=== PATIENT | male | born 1955 | race Caucasian/White ===

== ENCOUNTER → 2016-08-28 | Outpatient (CLI) | payer MEDICARE ==
[~2016-08-28] MED LIST: AMIO200T PO; ASP325TEC PO; ASP81TEC PO; CARV12.53 PO; CARVEDILOL PO; CEFU500T5 PO; ENAL2.5T PO; ENALAPRIL PO; ERTAPENEM IV; HYDR-707 PO; HYDR-757 PO; IBP800T PO; IBUP-1773 PO; PACERONE PO; RANI300T4 PO; RANITIDINE PO; SULF-222 PO; SULF1TAB38 PO
[2016-08-28 11:42] LABS: ALANINE AMINOTRANSFERASE 23 U/L (0-55); ALBUMIN 3.4 GM/DL (3.2-4.5); ANION GAP 7 MMOL/L (5-14); ASPARTATE AMINO TRANSFERASE 24 U/L (5-34); BILIRUBIN,TOTAL 0.7 MG/DL (0.1-1.0); BLOOD UREA NITROGEN 11 MG/DL (7-18); BUN/CREATININE RATIO 14; CALCIUM 8.7 MG/DL (8.5-10.1); CARBON DIOXIDE 26 MMOL/L (21-32); CHLORIDE 107 MMOL/L (98-107); CHOLESTEROL 163 MG/DL (< 200); CREATININE SERUM 0.78 MG/DL (0.60-1.30); DIRECT LDL 109 MG/DL (1-129); GFR ESTIMATED > 60; GLUCOSE 91 MG/DL (70-105); POTASSIUM 4.1 MMOL/L (3.6-5.0); SODIUM 140 MMOL/L (135-145); TOTAL PROTEIN 6.9 GM/DL (6.4-8.2); TRIGLYCERIDES 50 MG/DL (<150); VLDL CHOLESTEROL 10 MG/DL (5-40)
[2016-08-28 12:02] LABS: THYROID STIMULATING HORMONE 0.41 UIU/ML (0.35-4.94)
--- NOTE | 2016-08-28 13:57 | Diagnostic Imaging Report ---
PA and lateral views of the chest. COMPARISON: 04/29/2014. FINDINGS: The lungs are hyperinflated. There is no focal infiltrates. There is no effusion or pneumothorax. The heart size is normal. The mediastinum and na appear unremarkable. There is a pulse generator with a single cardiac lead seen in place. IMPRESSION: COPD. Dictated by: Dictated on workstation # [id number]
== END ==
LOC: RAD 11:00
PROVIDERS: ATTEND Physician Assistant
DX: J44.9 Chronic obstructive pulmonary disease, unspecified (principal); E78.2 Mixed hyperlipidemia; I50.1 Left ventricular failure, unspecified; I10 Essential (primary) hypertension; I47.2 Ventricular tachycardia
CPT/HCPCS: 36415; 71020; 80053; 80061; 84443

== ENCOUNTER → 2017-09-30 | Outpatient (CLI) | payer MEDICARE ==
[2017-09-30 15:02] LABS: ALANINE AMINOTRANSFERASE 21 U/L (0-55); ALBUMIN 3.6 GM/DL (3.2-4.5); ALKALINE PHOSPHATASE 79 U/L (40-136); BILIRUBIN,TOTAL 0.5 MG/DL (0.1-1.0); BUN/CREATININE RATIO 14; CALCIUM 8.9 MG/DL (8.5-10.1); CARBON DIOXIDE 26 MMOL/L (21-32); CHLORIDE 103 MMOL/L (98-107); GFR ESTIMATED > 60; GLUCOSE 146 MG/DL (70-105); POTASSIUM 3.9 MMOL/L (3.6-5.0); SODIUM 137 MMOL/L (135-145); TOTAL PROTEIN 7.4 GM/DL (6.4-8.2)
--- NOTE | 2017-09-30 16:30 | Diagnostic Imaging Report ---
INDICATION: Ventricular tachycardia. TIME OF EXAM: 2:51 PM Correlation is made with prior study 08/28/2016. FINDINGS: Cardiac defibrillator is in place. The lungs are clear. No infiltrate or failure is seen. No effusion or pneumothorax is seen. There is some hyperinflation consistent with COPD. IMPRESSION: COPD. No other significant abnormality is detected. Dictated by: Dictated on workstation # [id number]
== END ==
LOC: RAD 14:15
PROVIDERS: ATTEND Internal Medicine Cardiovascular Disease
DX: I47.2 Ventricular tachycardia (principal); I10 Essential (primary) hypertension; E78.2 Mixed hyperlipidemia; J44.9 Chronic obstructive pulmonary disease, unspecified; Q00-Q99 Congenital malformations, deformations and chromosomal abnormalities
CPT/HCPCS: 36415; 71046; 80053; 84443

== ENCOUNTER → 2017-10-23 | Outpatient (CLI) | payer MEDICARE | LOC: CARD 10:15 | PROVIDERS: ATTEND Internal Medicine Cardiovascular Disease | DX: I47.2 Ventricular tachycardia (principal); I10 Essential (primary) hypertension; E78.2 Mixed hyperlipidemia; Q00-Q99 Congenital malformations, deformations and chromosomal abnormalities; I08.1 Rheumatic disorders of both mitral and tricuspid valves | CPT/HCPCS: 93306 ==

== ENCOUNTER 2018-04-28 11:22 | Emergency (ER) | payer MEDICARE, OTHER ==
[~2018-04-28] VITALS: Ht 170.2 cm; Wt 54.4 kg
--- OUTSIDE RECORDS SUMMARY | 2018-04-28 11:29 | XMS REPORT ---
Author Author RADHA JARRELL [facility] WALK IN [facility] Address [address] [place] [address] Care Team Providers Care Upper Marker Name Role Phone RADHA JARRELL Unavailable PROBLEMS Type Condition ICD9-CM Code [id number] Code Onset Dates Condition Status SNOMED Code Problem Unspecified hearing loss 389.9 Active [id number] Problem Other dyspnea and respiratory abnormalities 786.09 Active [id number] ALLERGIES No Information ENCOUNTERS Encounter Location Date Diagnosis [facility] WALK IN [facility] [id number] [place] [phone] Jan, [facility] [address] [address] Jan, [facility] WALK IN [facility] [id number] [place] [phone] Jan, Cough R05 and Bronchitis J40 [facility] [id number] [place] [address] Jul, Ringworm B35.9 [facility] [id number] [place] [address] Dec, Bronchitis J40 [facility] [id number] [place] [address] Jul, [facility] [address] [phone] Apr, [facility] [address] [address] Mar, [facility] [id number] [place] [phone] Feb, [facility] [address], [place] [phone] Jan, [facility] [address] [facility] [id number] [place] [phone] Jan, IMMUNIZATIONS No Known Immunizations SOCIAL HISTORY Never Assessed REASON FOR VISIT Refill request PLAN OF CARE VITAL SIGNS MEDICATIONS Medication Instructions Dosage Frequency Start Date End Date Duration Status Ventolin HFA 108 (90 Base) MCG/ACT Inhalation every 6 hrs 2 puffs as needed 6h Jan, 7 days Active RESULTS No Results PROCEDURES No Known procedures INSTRUCTIONS MEDICATIONS ADMINISTERED No Known Medications MEDICAL (GENERAL) HISTORY Type Description Date Medical History Unspecified hearing loss Medical History Other dyspnea and respiratory abnormalities Medical History Cardiac pacemaker Surgical History pacemaker/defibrillator
--- OUTSIDE RECORDS SUMMARY | 2018-04-28 11:29 | XMS REPORT ---
Author Author RADHA JARRELL [facility] WALK IN [facility] Address [address] [place] [address] Care Team Providers Care Drying Machine Operator Name Role Phone RADHA JARRELL Unavailable PROBLEMS Type Condition ICD9-CM Code [id number] Code Onset Dates Condition Status SNOMED Code Problem Unspecified hearing loss 389.9 Active [id number] Problem Other dyspnea and respiratory abnormalities 786.09 Active [id number] ALLERGIES No Known Allergies ENCOUNTERS Encounter Location Date Diagnosis [facility] WALK IN [facility] [id number] [place] [phone] Jan, [facility] [place] [address] [address] Jan, [facility] IN [facility] [address] [phone] Jan, Cough R05 and Bronchitis J40 [facility] [place] [address] [address] Jul, Ringworm B35.9 [facility] [place] [id number] [place] [address] Dec, Bronchitis J40 [facility] [place] [id number] [place] [address] Jul, [facility] [place] [address] [address] Apr, [facility] [place] [address] [address] Mar, [facility] [place] [address] [address] Feb, [facility] [place] [address] [place] [address] Jan, [facility] [place] [address] [facility] [id number] [place] [address] Jan, IMMUNIZATIONS No Known Immunizations SOCIAL HISTORY Never Assessed REASON FOR VISIT Cough, and losing his voice and [facility] PLAN OF CARE Activity Details Follow Up prn Reason: VITAL SIGNS Height 62 in 2017-01-18 Weight 121.5 lbs 2017-01-18 Temperature 97.7 degrees Fahrenheit 2017-01-18 Heart Rate 76 bpm 2017-01-18 Respiratory Rate 24 2017-01-18 Oximetry on room air:96 % 2017-01-18 BMI 22.22 kg/m2 2017-01-18 Blood pressure systolic 118 mmHg 2017-01-18 Blood pressure diastolic 72 mmHg 2017-01-18 MEDICATIONS Medication Instructions Dosage Frequency Start Date End Date Duration Status Ranitidine 1 tab Active Pacerone 200 MG Orally Once a day 1 tablet 24h Active ProAir HFA 108 (90 Base) MCG/ACT Inhalation every 6 hrs 2 puffs as needed 6h Jan, 7 days Active Enalapril Maleate 2.5 MG Orally 2 times a day 12h Active Carvedilol 12.5 MG Orally 2 times a day 1 tab 12h Active Aspir-81 81 MG Orally Once a day 1 tablet 24h Active PredniSONE 20 MG Orally Once a day 2 tablet 24h Jan, Jan, 5 days Active RESULTS Name Result Date Reference Range Xray : Chest (IN HOUSE) 2017-01-18 PROCEDURES Procedure Date Ordered Result Body Site MEASURE BLOOD OXYGEN LEVEL Jan 18, 2017 CHEST X-RAY Jan 18, 2017 [facility] VISIT ESTABLISHED PATIENT Jan 18, 2017 INSTRUCTIONS MEDICATIONS ADMINISTERED No Known Medications MEDICAL (GENERAL) HISTORY Type Description Date Medical History Unspecified hearing loss Medical History Other dyspnea and respiratory abnormalities Medical History Cardiac pacemaker Surgical History pacemaker/defibrillator
--- OUTSIDE RECORDS SUMMARY | 2018-04-28 11:29 | XMS REPORT ---
Author CRYSTAL Perez [facility] eClinicalWorks Address Unknown Phone Unavailable Care Team Providers Care Plate Grainer Name Role Phone CRYSTAL SAL CP Unavailable Allergies, Adverse Reactions, Alerts Substance Reaction Event Type N.K.D.A. Info Not Available Non Drug Allergy Problems Problem Type Condition Code Onset Dates Condition Status Problem Unspecified hearing loss 389.9 Active Assessment Bronchitis J40 Active Problem Other dyspnea and respiratory abnormalities 786.09 Active Medications Medication Code System Code Instructions Start Date End Date Status Dosage Carvedilol [facility] [address]-11 12.5 MG Orally 2 times a day 1 tab Pacerone [facility] [address]-76 200 MG Orally Once a day 1 tablet Enalapril Maleate [facility] [address]-03 2.5 MG Orally 2 times a day not defined Aspir-81 [facility] [address]-28 81 MG Orally Once a day 1 tablet Doxycycline Hyclate [facility] [address]-60 100 MG Orally Twice a day Jan 04, 2015 Jan 11, 2015 1 capsule Ranitidine [facility] 0 Oral 1 tab Procedures Procedure Coding System Code Date Office Visit, Est Pt., Level 2 CPT-4 91554 Jan 04, 2015 [facility] VISIT ESTABLISHED PATIENT CPT-4 G0467 Jan 04, 2015 Vital Signs Date/Time: Jan 04, 2015 Temperature 97.7 F Weight 119 lbs Height 62 in BMI 21.76 Index Blood Pressure Diastolic 72 mmHg Blood Pressure Systolic 110 mmHg Cardiac Monitoring Heart Rate 72 bpm Results No Known Results Summary Purpose eClinicalWorks Submission
--- OUTSIDE RECORDS SUMMARY | 2018-04-28 11:29 | XMS REPORT ---
Author Author RADHA JARRELL [facility] WALK IN [facility] Address [address] [place] [address] Care Team Providers Care Tetryl Boiling Tub Operator Name Role Phone RADHA JARRELL Unavailable PROBLEMS Type Condition ICD9-CM Code LAI23-ZN Code Onset Dates Condition Status SNOMED Code Problem Unspecified hearing loss 389.9 Active [id number] Problem Other dyspnea and respiratory abnormalities 786.09 Active [id number] ALLERGIES No Information ENCOUNTERS Encounter Location Date Diagnosis [facility] WALK IN [facility] [id number] [place] [phone] Jan, [facility] [address] [address] Jan, [facility] WALK IN [facility] [id number] [place] [phone] Jan, Cough R05 and Bronchitis J40 [facility] [id number] [place] [address] Jul, Ringworm B35.9 [facility] [id number] [place] [address] Dec, Bronchitis J40 [facility] [id number] [place] [address] Jul, [facility] [address] [address] Apr, [facility] [address] [address] Mar, [facility] [id number] [place] [address] Feb, [facility] [address], [place] [phone] Jan, [facility] [address] [facility] [id number] [place] [address] Jan, IMMUNIZATIONS No Known Immunizations SOCIAL HISTORY Never Assessed REASON FOR VISIT PLAN OF CARE VITAL SIGNS MEDICATIONS Medication [...]
--- OUTSIDE RECORDS SUMMARY | 2018-04-28 11:30 | XMS REPORT | Continuity of Care Document ---
Author Author [facility] Address Unknown Phone Unavailable Allergies Active Description Code Type Severity Reaction Onset Reported/Identified Relationship to Patient Clinical Status Yes No Known Drug Allergies [id number] Drug Allergy Unknown N/A 06/20/2007 Medications There is no data. Problems Date Dx Coded Attending Type Code Diagnosis Diagnosed By 12/26/2009 Ot 719.43 12/26/2009 Ot 726.33 10/16/2010 Ot 726.33 OLECRANON BURSITIS 10/16/2010 Ot 729.5 PAIN IN LIMB 01/29/2012 Ot 305.1 TOBACCO USE DISORDER 01/29/2012 Ot 414.01 CORONARY ATHEROSCLEROSIS OF [place] CORON 01/29/2012 Ot 496 CHR AIRWAY OBSTRUCT NEC 01/29/2012 Ot 681.00 CELLULITIS, FINGER NOS 01/29/2012 Ot 682.4 CELLULITIS OF HAND 01/29/2012 Ot 883.1 OPEN WOUND FINGER-COMPL 01/29/2012 Ot E920.8 ACC-CUTTING INSTRUM NEC 01/29/2012 Ot V04.81 ND FOR PROPHYLACTIC VACCIN AND INOCULATI 01/29/2012 Ot V12.53 PERSONAL HISTORY OF SUDDEN CARDIAC ARRES 02/18/2012 CRYSTAL SAL MD 389.9 UNSPECIFIED HEARING LOSS 02/18/2012 CRYSTAL SAL MD 786.09 RESPIRATORY ABNORMALITY OTHER 02/18/2012 CRYSTAL SAL MD 389.9 UNSPECIFIED HEARING LOSS 02/18/2012 CRYSTAL SAL MD 786.09 RESPIRATORY ABNORMALITY OTHER 04/29/2012 Ot 682.4 CELLULITIS OF HAND 10/08/2013 CECILIA SHAW MD Ot 272.4 HYPERLIPIDEMIA NEC/NOS 10/08/2013 CECILIA SHAW MD Ot 305.1 TOBACCO USE DISORDER 10/08/2013 CECILIA SHAW MD Ot 401.9 HYPERTENSION NOS 10/08/2013 CECILIA SHAW MD Ot 414.01 CORONARY ATHEROSCLEROSIS OF [place] CORON 10/08/2013 CECILIA SHAW MD Ot 427.1 PAROX VENTRIC TACHYCARD 10/08/2013 CECILIA SHAW MD Ot 428.0 CONGESTIVE HEART FAILURE NOS 10/08/2013 CECILIA SHAW MD Ot 428.22 CHRONIC SYSTOLIC HRT FAILURE 10/08/2013 CECILIA SHAW MD Ot E78.4 OTHER HYPERLIPIDEMIA 10/08/2013 CECILIA SHAW MD Ot F17.200 NICOTINE DEPENDENCE, UNSPECIFIED, UNCOMP 10/08/2013 CECILIA SHAW MD Ot I10 ESSENTIAL (PRIMARY) HYPERTENSION 10/08/2013 CECILIA SHAW MD Ot I25.10 ATHSCL HEART DISEASE OF [place] CORONARY 10/08/2013 CECILIA SHAW MD Ot I47.2 VENTRICULAR TACHYCARDIA 10/08/2013 CECILIA SHAW MD Ot I50.22 CHRONIC SYSTOLIC (CONGESTIVE) HEART FAIL 10/08/2013 CECILIA SHAW MD Ot I50.9 HEART FAILURE, UNSPECIFIED 10/08/2013 CECILIA SHAW MD Ot V53.32 FITTING ADJUST AUTOMAT IMPLANT CARDIAC 10/08/2013 CECILIA SHAW MD Ot V58.69 OTH MED,LT,CURRENT USE 10/08/2013 CECILIA SHAW MD Ot Z45.02 ENCNTR FOR ADJUST AND MGMT OF AUTOMATIC 10/11/2013 LORELEI NEWSOME MD Ot 719.06 JOINT EFFUSION-L/LEG 10/11/2013 LORELEI NEWSOME MD Ot 719.46 JOINT PAIN-L/LEG 10/11/2013 LORELEI NEWSOME MD Ot M25.469 EFFUSION, UNSPECIFIED KNEE 10/11/2013 LORELEI NEWSOME MD Ot M25.569 PAIN IN UNSPECIFIED KNEE 10/11/2013 LORELEI NEWSOME MD Ot V58.69 OTH MED,LT,CURRENT USE 11/07/2013 SAMIRA WILLAMS APRN Ot 681.02 ONYCHIA OF FINGER 11/07/2013 SAMIRA WILLAMS APRN Ot L03.019 CELLULITIS OF UNSPECIFIED FINGER 05/20/2014 Ot 272.4 05/20/2014 Ot 401.9 05/20/2014 Ot 428.0 07/09/2014 CECILIA SHAW MD Ot 272.4 07/09/2014 CECILIA SHAW MD Ot 401.9 07/09/2014 SHAYNA SERRANO, CECILIA Pulido Ot 428.0 11/05/2014 Ot 272.4 11/05/2014 Ot 401.9 11/05/2014 Ot 428.0 11/05/2014 Ot V45.01 11/05/2014 Ot 272.4 11/05/2014 Ot 401.9 11/05/2014 Ot 272.4 11/05/2014 Ot 397.0 11/05/2014 Ot 401.9 11/05/2014 Ot 424.0 11/05/2014 Ot 428.0 11/05/2014 Ot V58.69 11/05/2014 Ot 682.4 11/05/2014 SHAYNA SERRANO, CECILIA Pulido Ot 424.0 11/05/2014 SHAYNA SERRANO, CECILIA Pulido Ot 427.1 11/05/2014 SHAYNA SERRANO, CECILIA Pulido Ot 428.0 11/05/2014 PAULINA MARIE PROCESS ENG Ot 272.4 11/05/2014 PAULINA MARIE PROCESS ENG Ot 401.9 11/05/2014 Ot 272.4 11/05/2014 Ot 401.9 11/05/2014 Ot 428.0 11/05/2014 CECILIA SHAW MD Ot 272.4 11/05/2014 CECILIA SHAW MD Ot 401.9 11/05/2014 CECILIA SHAW MD Ot 428.0 11/05/2014 Ot 272.4 11/05/2014 Ot 401.9 11/05/2014 Ot 428.0 11/15/2014 Ot 272.4 11/15/2014 Ot 401.9 11/15/2014 Ot 428.0 11/15/2014 Ot I10 11/15/2014 Ot I50.9 11/15/2014 CECILIA SHAW MD Ot 272.4 11/15/2014 CECILIA SHAW MD Ot 401.9 11/15/2014 CECILIA SHAW MD Ot 428.0 11/15/2014 CECILIA SHAW MD Ot I10 11/15/2014 CECILIA SHAW MD Ot I50.9 06/04/2015 Ot 682.4 CELLULITIS OF HAND 11/22/2015 Ot 272.4 HYPERLIPIDEMIA NEC/NOS 11/22/2015 Ot 401.9 HYPERTENSION NOS 11/22/2015 Ot 428.0 CONGESTIVE HEART FAILURE NOS 11/22/2015 Ot V45.01 CARDIAC PACEMAKER IN SITU 11/22/2015 Ot 272.4 HYPERLIPIDEMIA NEC/NOS 11/22/2015 Ot 401.9 HYPERTENSION NOS 11/22/2015 Ot 272.4 HYPERLIPIDEMIA NEC/NOS 11/22/2015 Ot 397.0 TRICUSPID VALVE DISEASE 11/22/2015 Ot 401.9 HYPERTENSION NOS 11/22/2015 Ot 424.0 MITRAL VALVE DISORDER 11/22/2015 Ot 428.0 CONGESTIVE HEART FAILURE NOS 11/22/2015 Ot V58.69 OT MED,LT, CURRENT USE 11/22/2015 Ot 682.4 CELLULITIS OF HAND 11/22/2015 CECILIA SHAW MD Ot 424.0 MITRAL VALVE DISORDER 11/22/2015 CECILIA SHAW MD Ot 427.1 PAROX VENTRIC TACHYCARD 11/22/2015 CECILIA SHAW MD Ot 428.0 CONGESTIVE HEART FAILURE NOS 11/22/2015 MARIEPAULINA BURNETT PROCESS ENG Ot 272.4 HYPERLIPIDEMIA NEC/NOS 11/22/2015 MARIEPAULINA BURNETT PROCESS ENG Ot 401.9 HYPERTENSION NOS 11/22/2015 Ot 272.4 HYPERLIPIDEMIA NEC/NOS 11/22/2015 Ot 401.9 HYPERTENSION NOS 11/22/2015 Ot 428.0 CONGESTIVE HEART FAILURE NOS 11/22/2015 Ot I10 ESSENTIAL ( PRIMARY) HYPERTENSION 11/22/2015 Ot I50.9 HEART FAILURE , UNSPECIFIED 11/22/2015 CECILIA SHAW MD Ot 272.4 HYPERLIPIDEMIA NEC/NOS 11/22/2015 CECILIA SHAW MD Ot 401.9 HYPERTENSION NOS 11/22/2015 CECILIA SHAW MD Ot 428.0 CONGESTIVE HEART FAILURE NOS 11/22/2015 CECILIA SHAW MD Ot I10 ESSENTIAL (PRIMARY) HYPERTENSION 11/22/2015 CECILIA SHAW MD Ot I50.9 HEART FAILURE, UNSPECIFIED 11/22/2015 SHANICE GUZMAN Ot I50.1 LEFT VENTRICULAR FAILURE 11/23/2015 SHANICE GUZMAN Ot I50.1 LEFT VENTRICULAR FAILURE 11/23/2015 SHANICE GUZMAN Ot E78.2 MIXED HYPERLIPIDEMIA 11/23/2015 SHANICE GUZMAN Ot I11.0 HYPERTENSIVE HEART DISEASE WITH HEART FA 11/23/2015 RUANO-BALJINDER PA, SHANICE K Ot I47.2 VENTRICULAR TACHYCARDIA 11/23/2015 LEIGHANN GREY, SHANICE Binh Ot I50.1 LEFT VENTRICULAR FAILURE 11/28/2015 LEIGHANN GREY, SHANICE Purcell Ot E78.2 MIXED HYPERLIPIDEMIA 11/28/2015 LEIGHANN PA, SHANICE K Ot I11.0 HYPERTENSIVE HEART DISEASE WITH HEART FA 11/28/2015 LEIGHANN GERY, SHANICE K Ot I47.2 VENTRICULAR TACHYCARDIA 11/28/2015 LEIGHANN PA, SHANICE K Ot I50.1 LEFT VENTRICULAR FAILURE 12/14/2015 LEIGHANN GREY, SHANICE Binh Ot E78.2 MIXED HYPERLIPIDEMIA 12/14/2015 LEIGHANN GREY, SHANICE K Ot I11.0 HYPERTENSIVE HEART DISEASE WITH HEART FA 12/14/2015 LEIGHANN GREY, SHANICE K Ot I47.2 VENTRICULAR TACHYCARDIA 12/14/2015 LEIGHANN GREY, SHANICE K Ot I50.1 LEFT VENTRICULAR FAILURE 09/18/2016 RUANOADARSH GREY, SHANICE Purcell Ot E78.2 MIXED HYPERLIPIDEMIA 09/18/2016 LEIGHANN GREY, SHANICE K Ot I10 ESSENTIAL (PRIMARY) HYPERTENSION 09/18/2016 LEIGHANN GREY, SHANICE K Ot I47.2 VENTRICULAR TACHYCARDIA 09/18/2016 LEIGHANN GREY, SHANICE K Ot I50.1 LEFT VENTRICULAR FAILURE 09/18/2016 LEIGHANN GREY, SHANICE K Ot J44.9 CHRONIC OBSTRUCTIVE PULMONARY DISEASE, U 11/06/2017 Ot E78.2 MIXED HYPERLIPIDEMIA 11/06/2017 Ot I10 ESSENTIAL ( PRIMARY) HYPERTENSION 11/06/2017 Ot I47.2 VENTRICULAR TACHYCARDIA 11/06/2017 Ot J44.9 CHRONIC OBSTRUCTIVE PULMONARY DISEASE, U 11/06/2017 Ot 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 11/06/2017 Ot R99 ILL-DEFINED AND UNKNOWN CAUSE OF MORTALI 11/15/2017 CECILIA SHAW MD Ot E78.2 MIXED HYPERLIPIDEMIA 11/15/2017 CECILIA SHAW MD Ot I08.1 RHEUMATIC DISORDERS OF BOTH MITRAL AND T 11/15/2017 CECILIA SHAW MD Ot I10 ESSENTIAL (PRIMARY) HYPERTENSION 11/15/2017 CECILIA SHAW MD Ot I47.2 VENTRICULAR TACHYCARDIA 11/15/2017 SHAYNA SERRANO, CECILIA Pulido Ot 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 03/12/2018 MARIEPAULINA BURNETT PROCESS ENG Ot 272.4 HYPERLIPIDEMIA NEC/NOS 03/12/2018 MARIEPAULINA PROCESS ENG Ot 401.9 HYPERTENSION NOS 03/12/2018 Ot 272.4 HYPERLIPIDEMIA NEC/NOS 03/12/2018 Ot 401.9 HYPERTENSION NOS 03/12/2018 Ot 428.0 CONGESTIVE HEART FAILURE NOS 03/12/2018 Ot I10 ESSENTIAL ( PRIMARY) HYPERTENSION 03/12/2018 Ot I50.9 HEART FAILURE , UNSPECIFIED 03/12/2018 SHAYNA SERRANO, CECILIA Pulido Ot 272.4 HYPERLIPIDEMIA NEC/NOS 03/12/2018 CECILIA SHAW MD Ot 401.9 HYPERTENSION NOS 03/12/2018 SHAYNA SERRANO, CECILIA Pulido Ot 428.0 CONGESTIVE HEART FAILURE NOS 03/12/2018 CECILIA SHAW MD Ot I10 ESSENTIAL (PRIMARY) HYPERTENSION 03/12/2018 CECILIA SHAW MD Ot I50.9 HEART FAILURE, UNSPECIFIED 03/12/2018 SHANICE GUZMAN Ot E78.2 MIXED HYPERLIPIDEMIA 03/12/2018 SHANICE GUZMAN Ot I11.0 HYPERTENSIVE HEART DISEASE WITH HEART FA 03/12/2018 SHANICE GUZMAN Ot I47.2 VENTRICULAR TACHYCARDIA 03/12/2018 SHANICE GUZMAN K Ot I50.1 LEFT VENTRICULAR FAILURE 03/12/2018 SHANICE GUZMAN Ot E78.2 MIXED HYPERLIPIDEMIA 03/12/2018 SHANICE GUZMAN Ot I10 ESSENTIAL (PRIMARY) HYPERTENSION 03/12/2018 SHANICE GUZMAN Ot I47.2 VENTRICULAR TACHYCARDIA 03/12/2018 SHANICE GUZMAN Ot I50.1 LEFT VENTRICULAR FAILURE 03/12/2018 SHANICE GUZMAN Ot J44.9 CHRONIC OBSTRUCTIVE PULMONARY DISEASE, U 03/12/2018 CECILIA SHAW MD Ot E78.2 MIXED HYPERLIPIDEMIA 03/12/2018 SHAYNA SERRANO, CECILIA Pulido Ot I08.1 RHEUMATIC DISORDERS OF BOTH MITRAL AND T 03/12/2018 CECILIA SHAW MD Ot I10 ESSENTIAL (PRIMARY) HYPERTENSION 03/12/2018 CECILIA SHAW MD Ot I47.2 VENTRICULAR TACHYCARDIA 03/12/2018 CECILIA SHAW MD Ot 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 03/12/2018 Ot E78.2 MIXED HYPERLIPIDEMIA 03/12/2018 Ot I10 ESSENTIAL ( PRIMARY) HYPERTENSION 03/12/2018 Ot I47.2 VENTRICULAR TACHYCARDIA 03/12/2018 Ot J44.9 CHRONIC OBSTRUCTIVE PULMONARY DISEASE, U 03/12/2018 Ot 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 Encounters ACCT No. Visit Date/Time Discharge Status Pt. Type Provider Facility Loc./Unit Complaint [id number] 04/24/2012 13:39:00 04/24/2012 23:59:59 CLS Outpatient CRYSTAL SAL MD [id number] 02/18/2012 14:56:00 02/18/2012 23:59:59 CLS Outpatient CRYSTAL SAL MD [id number] 05/12/2014 08:07:45 ACT Document Registration [id number] 01/18/2017 10:55:00 01/18/2017 23:59:59 C[facility] [id number] 10/23/2017 10:15:00 10/23/2017 23:59:59 CLS Outpatient CECILIA SHAW MD [facility] CARD I47.2 V-TACH [id number] 08/28/2016 11:00:00 08/28/2016 23:59:59 CLS Outpatient SHANICE GUZMAN [facility] RAD I50.1,I10, E78.2,I47.2 [id number] 11/22/2015 10:44:00 11/22/2015 23:59:59 CLS Outpatient LEIGHANN EDMONDS, SHANICE Purcell [facility] CARD CHF,HTN, MIXED HLP, VTACH [id number] 05/12/2014 08:07:00 05/12/2014 23:59:59 CLS Outpatient CECILIA SHAW MD [facility] CARD CHF,HTN,HLP [id number] 11/07/2013 13:00:00 11/07/2013 13:32:00 DIS Emergency SAMIRA WILLAMS APRN [facility] ER MIDDLE L FINGER INFECTION [id number] 10/11/2013 07:18:00 10/11/2013 09:34:00 DIS Emergency LORELEI NEWSOME MD [facility] ER L KNEE PAIN [id number] 10/07/2013 08:34:00 10/08/2013 10:20:00 DIS Outpatient CECILIA SHAW MD [facility] CATH ULISES,HTN,HLP [id number] 11/04/2012 07:06:00 11/04/2012 23:59:59 CLS Outpatient PAULINA MARIE PROCESS ENG [facility] LAB HYPERTENSION, HYPERLIPIDEMIA [id number] 07/28/2012 12:43:00 07/28/2012 23:59:59 CLS Outpatient CECILIA SHAW MD [facility] CARD CHF,HX OF V-TACH [id number] 09/30/2017 14:15:00 Document Registration [id number] 11/05/2014 16:46:00 Document Registration [id number] 04/29/2014 09:34:00 Document Registration [id number] 04/30/2012 00:00:00 Document Registration [id number] 02/21/2012 09:00:00 Document Registration [id number] 01/27/2012 08:33:00 Document Registration [id number] 07/11/2011 08:59:00 Document Registration [id number] 01/05/2011 10:01:00 Document Registration [id number] 10/16/2010 18:26:00 Document Registration [id number] 08/15/2010 09:03:00 Document Registration [id number] 12/26/2009 11:57:00 Document Registration
[2018-04-28] MEDS ORDERED: METH4TAB PO (12:22)
[2018-04-28] MEDS ORDERED: OFLO5DRO7 RIGHT EAR (12:22)
[2018-04-28] MEDS ORDERED: AMOX500C2 PO (12:22)
--- NOTE | 2018-04-28 12:22 | ED EENT ---
History of Present Illness General Chief Complaint: Dental Problems/Pain Stated Complaint: PAIN WITH SWALLOWING AND YAWN EAR PAIN Nursing Triage Note: PT COMPLAINT OF RT EAR/JAW PAIN. STATES "HURTS TO YAWN OR SWALLOW. PT VERBALIZED THINKS HE HAS SOMETHING IN HIS RT EAR. Source: patient Exam Limitations: no limitations History of Present Illness Date Seen by Provider: Apr 28, 2018 Time Seen by Provider: 12:18 Initial Comments To ER per private vehicle with a one-month history of right-sided jaw and ear pain. Timing/Duration: abrupt Severity: moderate Location: ear (R) Associated Symptoms: No fever, No malaise Allergies and Home Medications Allergies Coded Allergies: No Known Drug Allergies (Verified , 06/20/07) Home Medications Amiodarone HCl 200 Mg Tablet, 200 MG PO DAILY, (Reported) Aspirin 81 Mg Tabec, 81 MG PO DAILY, (Reported) Carvedilol 12.5 Mg Tablet, 6.25 MG PO BID, (Reported) TAKES 1/2 (12.5MG) TABLET TWICE DAILY Enalapril Maleate 2.5 Mg Tablet, 2.5 MG PO BID, (Reported) Hydrocodone Bit/Acetaminophen 1 Each Tablet, 1 EA PO Q6H PRN for MILD PAIN Prescribed by: SAMIRA WILLAMS on 11/07/13 1320 Ranitidine Hcl 300 Mg Tablet, 300 MG PO DAILY, (Reported) Trimethoprim/Sulfamethoxazole 1 Ea Tablet, 1 EA PO BID Prescribed by: SAMIRA WILLAMS on 11/07/13 1320 Patient Home Medication List Home Medication List Reviewed: Yes Review of Systems Review of Systems Constitutional: see HPI Eyes: No Symptoms Reported Ears: See HPI, Pain Nose: no symptoms reported Mouth: no symptoms reported Throat: no symptoms reported Respiratory: no symptoms reported Cardiovascular: no symptoms reported Past Tgjrvyk-Pgslsr-Kcbhiu Hx Patient Social History Recent Foreign Travel: No Contact w/Someone Who Travel: No Recent Infectious Disease Expo: No Immunizations Up To Date Tetanus Booster (TDap): Unknown Date of Pneumonia Vaccine: Oct 26, 2009 Date of Influenza Vaccine: Jan 27, 2012 Family Medical History FH: [place] in first degree male relative 19 FATHER FH: cancer 19 MOTHER Physical Exam Vital Signs Vital Signs - First Documented 04/28/18 12:14 Temp 96.0 Pulse 88 Resp 20 Pulse Ox 94 O2 Delivery Room Air Height, Weight, BMI Height: 5'7.00" Weight: 120lbs. 3.0oz. [id number]; BMI Method:Stated General Appearance: WD/WN, no apparent distress Eyes: bilateral eye normal inspection, bilateral eye PERRL, bilateral eye EOMI Ears: right ear other (the right external ear canal is moist and swollen, because of this I'm unable to visualize the tympanic membrane. Insertion of the otoscope into the right ear canal is quite painful for him. There is no tenderness or erythema to palpation of the mastoid process. There is tenderness over the preauricular lymph node on the right); left ear TM normal; bilateral ear auricle normal Neck: non-tender, full range of motion Respiratory: normal breath sounds, no respiratory distress, no accessory muscle use Gastrointestinal: normal bowel sounds, non tender Skin: normal color, warm/dry Progress/Results/Core Measures Results/Orders Vital Signs/I&O 04/28/18 12:14 Temp 96.0 Pulse 88 Resp 20 B/P (MAP) Pulse Ox 94 O2 Delivery Room Air Departure Impression Primary Impression: Otitis externa Qualified Codes: H60.501 - Unspecified acute noninfective otitis externa, right ear Disposition: HOME, SELF-CARE Condition: Stable Departure-Patient Inst. Decision time for Depature: 12:20 Referrals: CRYSTAL SAL MD (PCP/Family) Primary Care Physician Patient Instructions: Outer Ear Infection Add. Discharge Instructions: 1. You will need to follow-up with [facility] in about one week for reevaluation and to make sure that this improves, I am unable to see all of the structures of her ear because of the swelling in the ear canal. Apply the antibiotics into the ear canal as directed, steroids as directed and oral antibiotics as directed. All discharge instructions reviewed with patient and/ or family. Voiced understanding. Scripts Methylprednisolone (Medrol) 4 Mg Tab.ds.pk 4 MG PO UD, #1 PKG Prov: SAMIRA WILLAMS APRN 04/28/18 Amoxicillin (Amoxicillin) 500 Mg Capsule 500 MG PO TID, #21 CAP Prov: SAMIRA WILLAMS APRN 04/28/18 Ofloxacin (Floxin (Non-Formulary)) 5 Ml Drops 7 DROPS RIGHT EAR BID for 5 Days, #1 DROPS 0 Refills Prov: SAMIRA WILLAMS APRN 04/28/18 SAMIRA WILLAMS APRN Apr 28, 2018 12:22
[2018-04-28 12:31] VITALS: BP 97/52
== END 2018-04-28 12:31 | disposition home or self-care (01) ==
LOC: EDUNIT# 11:22 → ER 11:26
DX: H60.91 Unspecified otitis externa, right ear (principal); Z79.82 Long term (current) use of aspirin; Z82.49 Family history of ischemic heart disease and other diseases of the circulatory system
CPT/HCPCS: 99282

== ENCOUNTER 2018-07-27 09:38 | Emergency (ER) | payer MEDICARE ==
[~2018-07-27] VITALS: Ht 170.2 cm; Wt 54.5 kg
[~2018-07-27 09:38] MED LIST changes: +AMOX500C2 PO; +METH4TAB PO; +OFLO5DRO7 RIGHT EAR
[2018-07-27] MEDS ORDERED: TETANUS,DIPTH,PERTUSS P/F (BOOSTRIX) 0.5 ML VIAL IM ONE (10:15)
[2018-07-27] MEDS ORDERED: AMOX-358 PO (10:16)
--- NOTE | 2018-07-27 10:17 | ED General ---
General Chief Complaint: Bite-Animal/Human/Insect Stated Complaint: DOG BITE - R LEG Nursing Triage Note: PT AMB TO RM 9 WITH COMPLAINT OF DOG BITE TO RIGHT CALF. STATES HE WAS BITTEN YESTERDAY BY A NEIGHBORS DOG. STATES HE DOES NOT KNOW IF ANIMAL WAS UP TO DATE ON SHOTS. STATES DOG WAS TAKEN BY ANIMAL CONTROL. STATES HE NEEDS A TETANUS SHOT. Nursing Sepsis Screen: No Definite Risk Source of Information: Patient Exam Limitations: No Limitations History of Present Illness Date Seen by Provider: Jul 27, 2018 Time Seen by Provider: 10:05 Initial Comments This 62-year-old gentleman presents to the emergency room with a dog bite on the right calf that occurred yesterday morning. Patient didn't file a police report. I checked with the Police Department and confirmed that the animal is in custody. There were no reports of unusual behavior. Vaccination status is unknown. Patient has a puncture type wound on the right calf with no evidence of infection at this time. He is in need of a tetanus immunization. Allergies and Home Medications Allergies Coded Allergies: No Known Drug Allergies (Verified , 06/20/07) Home Medications Amiodarone HCl 200 Mg Tablet, 200 MG PO DAILY, (Reported) Amoxicillin 500 Mg Capsule, 500 MG PO TID Prescribed by: SAMIRA WILLAMS on 04/28/18 1222 Amoxicillin/Potassium Clav 1 Each Tablet, 1 EACH PO BID Prescribed by: RADHA ALSTON on 07/27/18 1016 Aspirin 81 Mg Tabec, 81 MG PO DAILY, (Reported) Carvedilol 12.5 Mg Tablet, 6.25 MG PO BID, (Reported) TAKES 1/2 (12.5MG) TABLET TWICE DAILY Enalapril Maleate 2.5 Mg Tablet, 2.5 MG PO BID, (Reported) Hydrocodone Bit/Acetaminophen 1 Each Tablet, 1 EA PO Q6H PRN for MILD PAIN Prescribed by: SAMIRA WILLAMS on 11/07/13 1320 Methylprednisolone 4 Mg Tab.ds.pk, 4 MG PO UD Prescribed by: SAMIRA WILLAMS on 04/28/18 1222 Ofloxacin 5 Ml Drops, 7 DROPS RIGHT EAR BID Prescribed by: SAMIRA WILLAMS on 04/28/18 1222 Ranitidine Hcl 300 Mg Tablet, 300 MG PO DAILY, (Reported) Trimethoprim/Sulfamethoxazole 1 Ea Tablet, 1 EA PO BID Prescribed by: SAMIRA WILLAMS on 11/07/13 1320 Patient Home Medication List Home Medication List Reviewed: Yes Review of Systems Review of Systems Constitutional: no symptoms reported EENTM: no symptoms reported Respiratory: no symptoms reported Cardiovascular: no symptoms reported Gastrointestinal: no symptoms reported Genitourinary: no symptoms reported Musculoskeletal: see HPI Skin: see HPI Psychiatric/Neurological: No Symptoms Reported Hematologic/Lymphatic: No Symptoms Reported Past Jtfazcm-Octwno-Bkqlme Hx Patient Social History Alcohol Use: Denies Use Recreational Drug Use: No (in past none recently) Smoking Status: Current Everyday Smoker Recent Foreign Travel: No Contact w/Someone Who Travel: No Recent Infectious Disease Expo: No Recent Hopitalizations: Yes (06-05-07) Immunizations Up To Date Tetanus Booster (TDap): More than 5yrs Date of Pneumonia Vaccine: Oct 26, 2009 Date of Influenza Vaccine: Jan 27, 2012 Past Medical History Surgeries: Yes (heart cath., pacemaker and defib inplant) Defibrillator, Pacemaker Respiratory: No Cardiac: Yes Cardiomyopathy (Nonischemic, with heart failure) Neurological: No Gastrointestinal: No Musculoskeletal: No Endocrine: No Cancer: No Psychosocial: No Blood Disorders: No Family Medical History FH: [place] in first degree male relative 19 FATHER FH: cancer 19 MOTHER Physical Exam Vital Signs Vital Signs - First Documented 07/27/18 09:50 Temp 96.6 Pulse 70 Resp 16 B/P (MAP) 93/66 (75) Pulse Ox 96 O2 Delivery Room Air Capillary Refill : Less Than 3 Seconds Height, Weight, BMI Height: 5'7.00" Weight: 120lbs. 3.0oz. 54.039177ex; 19.89 BMI Method:Stated General Appearance: No Apparent Distress, WD/WN HEENT: Normal ENT Inspection Respiratory: Lungs Clear, Normal Breath Sounds, No Respiratory Distress Cardiovascular: Regular Rate, Rhythm, No Edema, No Murmur Neurologic/Psychiatric: Alert, Oriented x3, No Motor/Sensory Deficits, Normal Mood/Affect Skin: Normal Color, Warm/Dry, Other (Puncture type wound on the posterior right calf. No active bleeding or inflammatory changes. Wound is scabbed over.) Progress/Results/Core Measures Suspected Sepsis Recent Fever Within 48 Hours: No Infection Criteria Present: None New/Unexplained Altered Menta: No Sepsis Screen: No Definite Risk SIRS Temperature:96.6 Pulse: 70 Respiratory Rate: 16 Blood Pressure 93 /66 Mean: 75 Results/Orders My Orders Vital Signs/I&O Capillary Refill : Less Than 3 Seconds Blood Pressure Mean: 75 Progress Note : Progress Note Tetanus booster was administered. Patient advised to follow-up with animal control during business hours. Prophylactic antibiotics were prescribed. Departure Impression Primary Impression: Dog bite Qualified Codes: W54.0XXA - Bitten by dog, initial encounter Disposition: HOME, SELF-CARE Condition: Stable Departure-Patient Inst. Decision time for Depature: 10:10 Referrals: CRYSTAL SAL MD (PCP/Family) Primary Care Physician Patient Instructions: Animal Bites (DC) Add. Discharge Instructions: Complete your antibiotics as prescribed. Return to care if you have worsening symptoms of increasing redness, increasing swelling, worsening pain, puslike drainage, or fever. Check with animal control later this week. If the dog has not been vaccinated and behavior is abnormal, you may need to return for rabies vaccination. All discharge instructions reviewed with patient and/or family. Voiced understanding. Scripts Amoxicillin/Potassium Clav (Augmentin 875-125 Tablet) 1 Each Tablet 1 EACH PO BID, #10 TAB 0 Refills Prov: RADHA BOYD MD 07/27/18 RADHA BOYD MD Jul 27, 2018 10:17
[2018-07-27 10:27] VITALS: BP 93/66
== END 2018-07-27 10:27 | disposition home or self-care (01) ==
LOC: EDUNIT# 09:38 → ER 09:39
DX: S81.851A Open bite, right lower leg, initial encounter (principal); I42.9 Cardiomyopathy, unspecified; I25.2 Old myocardial infarction; F17.200 Nicotine dependence, unspecified, uncomplicated; Z95.810 Presence of automatic (implantable) cardiac defibrillator; Z82.49 Family history of ischemic heart disease and other diseases of the circulatory system; Z79.82 Long term (current) use of aspirin; Z79.52 Long term (current) use of systemic steroids; W54.0XXA Bitten by dog, initial encounter
CPT/HCPCS: 90471; 90715; 99284

== ENCOUNTER → 2018-11-26 | Outpatient (CLI) | payer MEDICARE ==
[~2018-11-26] VITALS: Ht 170 cm; Wt 50.0 kg
[~2018-11-26] MED LIST changes: +AMOX-358 PO; +CATHETER FLUSH 10 ML SYR IV PRN; +REGADENOSON 0.4 MG/5 ML SYR (LEXISCAN) IV ONE
[2018-11-26 13:02] VITALS: BP 149/72
[2018-11-26 13:05] VITALS: BP 97/63
--- NOTE | 2018-11-27 08:22 | STRESS TEST ---
DATE OF SERVICE: 11/26/2018 LEXISCAN MYOVIEW STRESS TEST REPORT REFERRING PHYSICIAN: Dr. Rodrigo Laguna. Baseline heart rate is 71. Baseline blood pressure 145/85. Baseline EKG is sinus rhythm with right bundle branch block. In summary, the patient was injected with 10.57 mCi of technetium-99 Myoview and the resting images were obtained. Then, the patient received 0.4 mg of Lexiscan followed by 29.0 mCi of technetium-99 Myoview. Throughout the test, there were no EKG changes. The resting and stress images were reviewed and compared in the short axis, horizontal long axis, and vertical long axis views. Review of the images showed decreased uptake involving the anteroapical segment, which is fixed mild decreased uptake at the mid to apical inferoseptum with mild reversibility. SSS is 3, SDS 1, TID value 0.98. On the gated images, the left ventricle appeared to be in normal size with mild hypokinesia at the inferior wall. Calculated ejection fraction 47%. CONCLUSION: 1. The patient tolerated Lexiscan well. 2. Apical thinning with no significant ischemia or infarction on SPECT images. 3. Normal left ventricular size with mild hypokinesia at the inferior wall. Calculated ejection fraction 47%. Job ID: [id number] DocumentID: [id number] Dictated Date: 11/27/2018 06:52:25 Eyeletter Date: 11/27/2018 08:22:02 Dictated By: CECILIA CORRAL MD
== END ==
LOC: CARD 10:14
PROVIDERS: ATTEND Internal Medicine Cardiovascular Disease
DX: I10 Essential (primary) hypertension (principal); E78.2 Mixed hyperlipidemia; Q00-Q99 Congenital malformations, deformations and chromosomal abnormalities; Z72.0 Tobacco use
CPT/HCPCS: 78452; 93017; 93306

== ENCOUNTER → 2020-10-07 | Outpatient (CLI) | payer MEDICARE ==
[~2020-10-07] MED LIST changes: -CATHETER FLUSH 10 ML SYR IV PRN; +OFLO5DRO33 RIGHT EAR; -OFLO5DRO7 RIGHT EAR; -REGADENOSON 0.4 MG/5 ML SYR (LEXISCAN) IV ONE
[2020-10-07 10:38] LABS: ALBUMIN 3.4 GM/DL (3.2-4.5); BILIRUBIN,TOTAL 0.4 MG/DL (0.1-1.0); CALCIUM 8.8 MG/DL (8.5-10.1); CREATININE SERUM 0.77 MG/DL (0.60-1.30); POTASSIUM 4.4 MMOL/L (3.6-5.0); TOTAL PROTEIN 7.3 GM/DL (6.4-8.2)
== END ==
LOC: LAB 09:56
PROVIDERS: ATTEND Internal Medicine Cardiovascular Disease
DX: E78.2 Mixed hyperlipidemia (principal); Z79.899 Other long term (current) drug therapy
CPT/HCPCS: 36415; 80053; 80061; 84443

== ENCOUNTER → 2020-10-10 | Outpatient (CLI) | payer MEDICARE | LOC: CARD 08:30 | PROVIDERS: ATTEND Internal Medicine Cardiovascular Disease | DX: I10 Essential (primary) hypertension (principal) | CPT/HCPCS: 93306 ==

== ENCOUNTER → 2021-11-17 | Outpatient (CLI) | payer MEDICARE | LOC: CARD 11:00 | PROVIDERS: ATTEND Internal Medicine Cardiovascular Disease | DX: I10 Essential (primary) hypertension (principal) | CPT/HCPCS: 93306 ==